=== PATIENT | female | born 1990 | race Caucasian/White ===

== ENCOUNTER 2019-10-16 20:12 | Emergency (ER) | payer OTHER ==
[2019-10-16 20:50] VITALS: O2SAT 97
--- NOTE | 2019-10-16 21:30 | ED.PDOC ---
History of Present Illness - General Chief Complaint: General Stated Complaint: medical clearance Time Seen by Provider: 10/16/19 20:54 Source: patient, police Exam Limitations: no limitations - History of Present Illness Initial Comments: law enforcement concerned that patient is in danger from placing drugs and possibly a scale in her vagina. She is in police custody on arrival. she denies this. Her BP is elevated and her HR goes up as high as 130s at times. Timing/Duration: 1-3 hours - per police, other Severity: moderate, severe - potentially Improving Factors: nothing Worsening Factors: nothing Associated Symptoms: denies symptoms Review of Systems - Review of Systems Constitutional: States: no symptoms reported EENTM: States: no symptoms reported Respiratory: States: no symptoms reported. Denies: cough, short of breath, wheezing Cardiology: States: palpitations - reports that she takes Metoprolol for BP and HR. Denies: chest pain Gastrointestinal/Abdominal: Denies: abdominal pain, nausea, vomiting Genitourinary: States: no symptoms reported Musculoskeletal: States: no symptoms reported Neurological: Denies: no symptoms reported Past Medical History (General) - Patient Medical History Hx Seizures: No Hx Stroke: No Hx Dementia: No Hx Asthma: No Hx of COPD: No Hx Cardiac Disorders: No Hx Congestive Heart Failure: No Hx Pacemaker: No Hx Hypertension: Yes Hx Thyroid Disease: Yes Hx Diabetes: No Hx Gastroesophageal Reflux: Yes Hx Renal Disease: No Hx of HIV: No Hx MRSA: No Surgical History: other - Vaccination History Hx Tetanus, Diphtheria Vaccination: No Hx Influenza Vaccination: Yes Hx Pneumococcal Vaccination: No - Social History Hx Tobacco Use: Yes Hx Alcohol Use: No Family Medical History - Family History Father Hx Family Diabetes: Yes Mother Hx Family Asthma: Yes Physical Exam - Physical Exam General Appearance: Alert Eye Exam: bilateral normal Ears, Nose, Throat: hearing grossly normal Neck: full range of motion, supple Respiratory: lungs clear, normal breath sounds, no respiratory distress Cardiovascular/Chest: regular rate, rhythm, no murmur, tachycardia Neurologic: alert, oriented x 3 Progress - Progress Progress: 10/16/19 22:44 Pelvic exam: no foreign body, copious creamy d/c no CMT no uterine tenderness Departure - Departure Clinical Impression: Normal vaginal exam Fever Qualifiers: Fever type: due to other condition Qualified Code(s): R50.81 - Fever presenting with conditions classified elsewhere Time of Disposition: 22:49 Disposition: Detention Condition: Good Departure Forms: ED Discharge - Pt. Copy, Patient Portal Self Enrollment Instructions: Vaginal Foreign Body
[2019-10-16 22:51] VITALS: BP 130/90
[2019-10-16 23:27] VITALS: TEMP 98.3
== END 2019-10-16 23:27 ==
LOC: ER 20:12
DX: Z02.89 Encounter for other administrative examinations (principal); Z03.89 Encounter for observation for other suspected diseases and conditions ruled out